=== PATIENT | male | born 1985 | race American Indian/Alaskan Native ===

== ENCOUNTER 2018-09-01 13:47 | Inpatient (IN) | payer OTHER ==
[2018-09-01] MEDS ORDERED: NACL 0.9% 1000 ML 1,000 ML IV ONE ×2 (14:28→14:46)
--- NOTE | 2018-09-01 14:29 | Emergency Department Report ---
ED Syncope HPI - General Chief Complaint: Syncope Stated Complaint: SYNCOPE Time Seen by Provider: 09/01/18 14:23 Source: patient, RN notes reviewed, other (history obtained also from patient's girlfriend) Exam Limitations: other (patient is altered, and is a poor historian.) - History of Present Illness Initial Comments: This is a 32-year-old gentleman, not known to this provider previously, who is brought to the hospital by EMS and by girlfriend for episode of syncope. The patient's girlfriend, patient was in his usual state of health, up until 12:00 PM or so. She reports that he passed out. She reports that prior to this, patient had not been having headache, neck pain, chest pain abdominal pain or shortness of breath, she does reports no recent travel history, she denies DVT, pulmonary embolus risk factors for the patient, and she reports no drug use. In the emergency room, the patient is laying on isr side, does not follow commands. He appears to have fluctuating consciousness. The patient's girlfriend has asked the patient to turn cooperate with physical exam as well as laboratory draw, the patient continues to move 4 extremities, and speaks nonsensically. He is not able to describe exacerbating or relieving factors, aggravation, or qualitative nature of his symptoms. Timing/Prior Episodes: multiple episodes today - Related Data Allergies/Adverse Reactions: Allergies No Known Allergies Allergy (Unverified 08/07/18 23:45) Home Medications: Ambulatory Orders No Known Home Medications [No Reported Home Medications] 09/01/18 ED Review of Systems ROS: Stated complaint: SYNCOPE Other details as noted in HPI Comment: Unobtainable due to pts medical conditions Cardiovascular: syncope Neurological: confusion ED Past Medical Hx - Surgical History Additional Surgical History: Intestinal obstruction - Social History Smoking Status: Current Every Day Smoker Substance Use Type: None - Medications Home Medications: Home Medications Medication Instructions Recorded Confirmed Last Taken Type No Known Home Medications [No 09/01/18 09/01/18 Unknown History Reported Home Medications] ED Physical Exam - General Limitations: Altered Mental Status General appearance: alert, appears intoxicated, in distress - Head Head exam: Present: atraumatic, normocephalic - Eye Eye exam: Present: normal appearance, PERRL. Absent: nystagmus - ENT ENT exam: Present: normal exam, normal orophraynx, mucous membranes moist, normal external ear exam - Neck Neck exam: Present: normal inspection, full ROM. Absent: tenderness, meningismus - Respiratory Respiratory exam: Present: normal lung sounds bilaterally. Absent: respiratory distress - Cardiovascular Cardiovascular Exam: Present: normal rhythm, bradycardia, normal heart sounds. Absent: systolic murmur, diastolic murmur, rubs, gallop - GI/Abdominal GI/Abdominal exam: Present: soft. Absent: distended, tenderness, guarding, rebo und, rigid, pulsatile mass - Rectal Rectal exam: Present: deferred - Extremities Exam Extremities exam: Present: normal inspection, full ROM, other (2+ pulses noted in the bilateral upper, lower extremities. Compartments soft. No long bony tenderness. The pelvis is stable.). Absent: pedal edema, joint swelling, calf tenderness - Back Exam Back exam: Present: normal inspection, full ROM. Absent: tenderness, CVA tenderness (R), paraspinal tenderness, vertebral tenderness - Neurological Exam Neurological exam: Present: altered, other (there is no facial droop. The patient is moving 4 extremities. Speaking nonsensically. Unable to perform detailed neurologic examination secondary to patient's inability to cooperate and participate with detailed neurologic examination.) - Psychiatric Psychiatric exam: Present: normal affect, normal mood - Skin Skin exam: Present: warm, dry, intact, normal color. Absent: rash ED Course Vital Signs 09/01/18 09/01/18 09/01/18 14:18 14:30 14:31 Temperature 98.1 F Pulse Rate 58 L 57 L Respiratory 18 18 Rate Blood Pressure 108/65 105/67 O2 Sat by Pulse 96 99 99 Oximetry 09/01/18 09/01/18 09/01/18 14:46 15:00 15:32 Temperature Pulse Rate 56 L 63 Respiratory 13 16 17 Rate Blood Pressure 108/65 108/65 125/94 O2 Sat by Pulse 97 Oximetry 09/01/18 09/01/18 09/01/18 15:46 16:00 16:16 Temperature Pulse Rate 61 59 L 57 L Respiratory 18 18 17 Rate Blood Pressure 106/55 110/62 125/94 O2 Sat by Pulse 98 100 Oximetry 09/01/18 09/01/18 09/01/18 16:30 16:46 17:00 Temperature Pulse Rate 55 L 48 L 42 L Respiratory 17 19 19 Rate Blood Pressure 125/94 103/54 103/54 O2 Sat by Pulse 100 100 100 Oximetry 09/01/18 09/01/18 09/01/18 17:16 17:30 17:46 Temperature Pulse Rate 45 L 51 L 52 L Respiratory 19 19 19 Rate Blood Pressure 103/54 103/54 107/54 O2 Sat by Pulse 99 99 99 Oximetry 09/01/18 18:00 Temperature Pulse Rate 53 L Respiratory 18 Rate Blood Pressure 107/54 O2 Sat by Pulse 99 Oximetry - Reevaluation(s) Reevaluation #1: 09/01/18 16:09 Differential diagnosis, including not limited to: Orthostasis, vagal event, structural cardiac disease, symptomatic bradycardia, forgot a syndrome, intracranial injury, dehydration, pulmonary embolus Assessment and plan: 32-year-old gentleman with reported history of syncope. The patient is altered at this time. This provider repeatedly asked the patient to cooperate with his physical exam, and to allow blood draws and participate in his medical care. The patient is initially laying on his side, and in spite of multiple attempts by myself to mitochondrial disorders counselor patient, he initially is not cooperating with his physical exam, and appears to not exhibit decision-making capacity. I explained to the patient that we needed to rule out dangerous life-threatening causes of loss of consciousness, and he was not able to articulate this in his own words. Uncertain if patient is acutely delirious, psychotic, experiencing conversion disorder, or both. Therefore, for patient safety, given documented history of hypotension, bradycardia, syncope, patient is placed on a 1013 to facilitate diagnostic workup to exclude life-threatening causes of syncope. objective laboratory testing is unremarkable, noncontrast CT scan of the brain is negative, d-dimer negative, as per girlfriend, no pulmonary embolus or DVT risk factors, perc negative As per verbal report from paramedics, Leeroy Gomes, patient had orthostatic hypotens ion. 09/01/18 16:12 Reevaluation #2: 09/01/18 18:50 Objective laboratory testing and imaging studies unremarkable, vital signs have remained stable. Given history of syncope, orthostasis, abnormal intervals, and appropriate mental status, patient will be admitted to the medical service for further evaluation and management. Dr. Granda, of the medical service, will admi t the patient ED Medical Decision Making - Lab Data Result diagrams: 09/01/18 14:33 09/01/18 14:33 Vital Signs 09/01/18 09/01/18 09/01/18 14:18 14:30 14:31 Temperature 98.1 F Pulse Rate 58 L 57 L Respiratory 18 18 Rate Blood Pressure 108/65 105/67 O2 Sat by Pulse 96 99 99 Oximetry 09/01/18 09/01/18 09/01/18 14:46 15:00 15:32 Temperature Pulse Rate 56 L 63 Respiratory 13 16 17 Rate Blood Pressure 108/65 108/65 125/94 O2 Sat by Pulse 97 Oximetry 09/01/18 15:46 Temperature Pulse Rate 61 Respiratory 18 Rate Blood Pressure 106/55 O2 Sat by Pulse 98 Oximetry Lab Results 09/01/18 09/01/18 09/01/18 Range/Units 14:33 14:33 14:33 WBC 4.7 (4.5-11.0) K/mm3 RBC 5.08 H (3.65-5.03) M/mm3 Hgb 14.1 (11.8-15.2) gm/dl Hct 43.7 (35.5-45.6) % MCV 86 (84-94) fl MCH 28 (28-32) pg MCHC 32 (32-34) % RDW 13.1 L (13.2-15.2) % Plt Count 201 (140-440) K/mm3 PT 14.5 (12.2-14.9) Sec. INR 1.09 (0.87-1.13) APTT 29.8 (24.2-36.6) Sec. D-Dimer (0-234) ng/mlDDU Sodium 138 (137-145) mmol/L Potassium 3.9 (3.6-5.0) mmol/L Chloride 105.0 (98-107) mmol/L Carbon Dioxide 24 (22-30) mmol/L Anion Gap 13 mmol/L BUN 10 (9-20) mg/dL Creatinine 0.8 (0.8-1.5) mg/dL Estimated GFR > 60 ml/min BUN/Creatinine Ratio 13 % Glucose 83 (75-100) mg/dL Calcium 8.4 (8.4-10.2) mg/dL Magnesium 2.00 (1.7-2.3) mg/dL Total Bilirubin 0.60 (0.1-1.2) mg/dL AST 18 (5-40) units/L ALT 11 (7-56) units/L Alkaline Phosphatase 78 (35-129) units/L Total Creatine Kinase 210 H (55-170) units/L Troponin T < 0.010 (0.00-0.029) ng/mL Total Protein 6.9 (6.3-8.2) g/dL Albumin 4.0 (3.9-5) g/dL Albumin/Globulin Ratio 1.4 % TSH (0.270-4.200) mlU/mL Salicylates (2.8-20.0) mg/dL Plasma/Serum Alcohol (0-0.07) % 09/01/18 09/01/18 09/01/18 Range/Units 14:33 14:33 14:33 WBC (4.5-11.0) K/mm3 RBC (3.65-5.03) M/mm3 Hgb (11.8-15.2) gm/dl Hct (35.5-45.6) % MCV (84-94) fl MCH (28-32) pg MCHC (32-34) % RDW (13.2-15.2) % Plt Count (140-440) K/mm3 PT (12.2-14.9) Sec. INR (0.87-1.13) APTT (24.2-36.6) Sec. D-Dimer (0-234) ng/mlDDU Sodium (137-145) mmol/L Potassium (3.6-5.0) mmol/L Chloride (98-107) mmol/L Carbon Dioxide (22-30) mmol/L Anion Gap mmol/L BUN (9-20) mg/dL Creatinine (0.8-1.5) mg/dL Estimated GFR ml/min BUN/Creatinine Ratio % Glucose (75-100) mg/dL Calcium (8.4-10.2) mg/dL Magnesium (1.7-2.3) mg/dL Total Bilirubin (0.1-1.2) mg/dL AST (5-40) units/L ALT (7-56) units/L Alkaline Phosphatase (35-129) units/L Total Creatine Kinase (55-170) units/L Troponin T (0.00-0.029) ng/mL Total Protein (6.3-8.2) g/dL Albumin (3.9-5) g/dL Albumin/Globulin Ratio % TSH 0.668 (0.270-4.200) mlU/mL Salicylates < 0.3 L (2.8-20.0) mg/dL Plasma/Serum Alcohol < 0.01 (0-0.07) % 09/01/18 Range/Units 14:33 WBC (4.5-11.0) K/mm3 RBC (3.65-5.03) M/mm3 Hgb (11.8-15.2) gm/dl Hct (35.5-45.6) % MCV (84-94) fl MCH (28-32) pg MCHC (32-34) % RDW (13.2-15.2) % Plt Count (140-440) K/mm3 PT (12.2-14.9) Sec. INR (0.87-1.13) APTT (24.2-36.6) Sec. D-Dimer 38.85 (0-234) ng/mlDDU Sodium (137-145) mmol/L Potassium (3.6-5.0) mmol/L Chloride (98-107) mmol/L Carbon Dioxide (22-30) mmol/L Anion Gap mmol/L BUN (9-20) mg/dL Creatinine (0.8-1.5) mg/dL Estimated GFR ml/min BUN/Creatinine Ratio % Glucose (75-100) mg/dL Calcium (8.4-10.2) mg/dL Magnesium (1.7-2.3) mg/dL Total Bilirubin (0.1-1.2) mg/dL AST (5-40) units/L ALT (7-56) units/L Alkaline Phosphatase (35-129) units/L Total Creatine Kinase (55-170) units/L Troponin T (0.00-0.029) ng/mL Total Protein (6.3-8.2) g/dL Albumin (3.9-5) g/dL Albumin/Globulin Ratio % TSH (0.270-4.200) mlU/mL Salicylates (2.8-20.0) mg/dL Plasma/Serum Alcohol (0-0.07) % - EKG Data -: EKG Interpreted by Ar EKG shows normal: sinus rhythm Rate: normal - EKG Data 09/01/18 16:11 EKG #1 demonstrates bradycardia, 46 beats minute, normal axis, IN interval prolonged, not consistent with ST elevation myocardial infarction. EKG number 2 appear to be unchanged. - Radiology Data Radiology results: report reviewed, image reviewed Noncontrast CT scan of the brain is negative. X-ray the chest is negative. Noncontrast CT scan of the abdomen and pelvis is negative for acute disease. Critical care attestation.: If time is entered above; I have spent that time in minutes in the direct care of this critically ill patient, excluding procedure time. ED Disposition Clinical Impression: Syncope, Bradycardia Disposition: 09 OP ADMIT IP TO THIS HOSP Is pt being admited?: Yes Does the pt Need Aspirin: Yes Condition: Good Instructions: Syncope (ED) Referrals: PRIMARY CARE, [Primary Care Provider] - 3-5 Days
[2018-09-01] MEDS ORDERED: ATIVAN ONE (14:42)
[2018-09-01] MEDS ORDERED: HALDOL ONE (14:42)
[2018-09-01] MEDS ORDERED: ATIVAN IM PRN (14:46)
[2018-09-01] MEDS ORDERED: HALDOL IM PRN (14:46)
[2018-09-01 15:00] LABS: Hematocrit 43.7 % (35.5-45.6); Hemoglobin 14.1 gm/dl (11.8-15.2); Mean Corpuscular HGB Conc 32 % (32-34); Mean Corpuscular Volume 86 fl (84-94); Platelet Count 201 K/mm3 (140-440); Red Blood Count 5.08 M/mm3 (3.65-5.03); Red Cell Distribution Width 13.1 % (13.2-15.2)
[2018-09-01 15:11] LABS: INR 1.09 (0.87-1.13)
[2018-09-01 15:12] LABS: Partial Thromboplastin Time 29.8 Sec. (24.2-36.6)
--- NOTE | 2018-09-01 15:30 | Cat Scan Report ---
FINAL REPORT EXAM: CT HEAD/BRAIN WO CON HISTORY: ams syncope, PT IMMOBILIZED, UNRESPONSIVE. SYNCOPAL EPISODES SINCE YESTERDAY. TECHNIQUE: CT of the head was performed without intravenous contrast. PRIORS: None. FINDINGS: The ventricles are normal in shape and position. The ventricles are nondilated. No intracranial hemo rrhage, mass, mass effect, midline shift or evidence of acute ischemic infarct. The basilar cisterns are patent. The paranasal sinuses are clear. The extracranial soft tissues demonstrate no abnormality. The calvar ium is intact. The orbits are intact. The mastoid air cells are clear. IMPRESSION: No acute intracranial abnormality.
[2018-09-01 15:42] LABS: Alanine Aminotransferase 11 units/L (7-56); BUN/Creatinine Ratio 13; Blood Urea Nitrogen 10 mg/dL (9-20); Calcium 8.4 mg/dL (8.4-10.2); Hemolysis Index 15
--- NOTE | 2018-09-01 15:57 | Cat Scan Report ---
FINAL REPORT EXAM: CT ABDOMEN PELVIS WO CON HISTORY: syncope hypotension? aaa vs rph. BEST STUDY POSSIBLE. PT UNRESPONSIVE, MOVING, HAD TO STRAP HIM DOWN, UNABLE TO HOLD BREATH OR PUT ARMS ABOVE HEAD. TECHNIQUE: CT of the abdomen and pelvis was performed without intravenous contrast. Reconstructions were included in the coronal and sagittal planes. PRIORS: None. FINDINGS: Lower thorax: Mild bibasilar atelectasis seen. The visualized portions of the heart are normal. Liver: The liver is normal in attenuation. No intrahepatic biliary duct dilation. No focal hepatic le sions. Gallbladder/ biliary system: No cholelithiasis. The common bile duct appears nondilated. Spleen: No splenic lesions are seen. Pancreas: No pancreatic lesions are seen. No pancreatic duct dilation. Kidneys: No renal masses, cysts or hydronephrosis. No renal or ureteral calcifications. Adrenal glands: No adrenal masses. Vasculature: The abdominal aorta is nondilated. Lymph nodes: No enlarged lymph nodes are seen in the abdomen or pelvis. Bowel, mesentery, peritoneum: No bowel obstruction. No free fluid or free air. The appendix was not d efinitively seen. No evidence of retroperitoneal hemorrhage. No colonic diverticulosis. No bowel wall thickening. Urinary bladder: No filling defects are seen. Pelvis: Normal anatomy is noted. No masses. Abdominal wall: No abdominal wall hernia or other subcutaneous findings. Bones: No acute or chronic osseous finding. IMPRESSION: No acute intra-abdominal or intra-pelvic process.
--- NOTE | 2018-09-01 15:59 | XRay Report ---
FINAL REPORT EXAM: XR CHEST 1V AP HISTORY: syncope TECHNIQUE: Frontal chest radiograph. PRIORS: None. FINDINGS: The cardiomediastinal silhouette is normal. No focal consolidation. No pleural effusion. No pneumothorax. No acute osseous abnormality. IMPRESSION: No acute cardiopulmonary process.
[2018-09-01] MEDS ORDERED: SODIUM CHLORIDE FLUSH SYRINGE 10 ML IV PRN (18:43)
[2018-09-01] MEDS ORDERED: ZOFRAN IV PRN (18:43)
[2018-09-01] MEDS ORDERED: TYLENOL PO PRN (18:43)
[2018-09-01] MEDS ORDERED: PROVENTIL IH PRN (18:43)
--- NOTE | 2018-09-01 18:43 | History and Physical Report ---
History of Present Illness Chief complaint: He passed out History of present illness: 32 YO Male with Nicotine Dependence presents to ED for evaluation. Pt is lethargic/stuporous and unable to provide detailed history. Pt history provided by his girlfriend, who is at bedside during exam and interview. As per girlfrien d, the patient was in his usual state of health, but around 1200hrs the patient suddenly lost consciousness. No further history obtainable. EMS notified, and upon arrival the patient was found to be lethargic. Pt transported to [facility] for further care and evaluation. Pt seen and evaluated in ED and found to have Encephalopathy and well as bradycardia on EKG. Pt admitted to telemetry. Past History Past Medical History: No medical history (reviewed) Past Surgical History: bowel surgery Social history: single, smoking. denies: alcohol abuse, prescription drug abuse Family history: no significant family history (reviewed) Medications and Allergies Allergies Allergy/AdvReac Type Severity Reaction Status Date / Time No Known Allergies Allergy Unverified 08/07/18 23:45 Home Medications Medication Instructions Recorded Confirmed Last Taken Type No Known Home Medications [No 09/01/18 09/01/18 Unknown History Reported Home Medications] Active Meds: Active Medications Haloperidol Lactate (Haldol) 5 mg IM Q6HR PRN PRN Reason: Agitation Last Admin: 09/01/18 14:44 Dose: 5 mg Documented by: Lorazepam (Ativan) 2 mg IM Q4HR PRN PRN Reason: Agitation Last Admin: 09/01/18 14:44 Dose: 2 mg Documented by: Review of Systems ROS unobtainable: due to mental status Exam - Constitutional Vitals: Temp Pulse Resp BP Pulse Ox 98.1 F 53 L 18 107/54 99 09/01/18 14:31 09/01/18 18:00 09/01/18 18:00 09/01/18 18:00 09/01/18 18:00 General appearance: Present: mild distress - EENT Eyes: Present: miosis - Neck Neck: Present: supple, normal ROM - Respiratory Respiratory effort: normal Respiratory: bilateral: CTA - Cardiovascular Heart Sounds: Present: S1 & S2. Absent: rub, click - Extremities Extremities: pulses symmetrical, No edema Peripheral Pulses: within normal limits - Abdominal General gastrointestinal: Present: soft, non-tender, non-distended, normal bowel sounds Male genitourinary: Present: normal - Integumentary Integumentary: Present: clear, warm, dry - Musculoskeletal Musculoskeletal: generalized weakness - Psychiatric Psychiatric: no appropriate mood/affect, no intact judgment & insight, no memory intact - Neurologic Neurologic: CNII-XII intact, moves all extremities, no gait normal Results - Labs CBC & Chem 7: 09/01/18 14:33 09/01/18 14:33 Labs: Abnormal lab results 09/01/18 09/01/18 09/01/18 Range/Units 14:33 14:33 14:33 RBC 5.08 H (3.65-5.03) M/mm3 RDW 13.1 L (13.2-15.2) % Total Creatine Kinase 210 H (55-170) units/L Salicylates < 0.3 L (2.8-20.0) mg/dL Acetaminophen (10.0-30.0) ug/mL 09/01/18 Range/Units 14:33 RBC (3.65-5.03) M/mm3 RDW (13.2-15.2) % Total Creatine Kinase (55-170) units/L Salicylates (2.8-20.0) mg/dL Acetaminophen < 5.0 L (10.0-30.0) ug/mL Assessment and Plan - Patient Problems (1) Encephalopathy Current Visit: Yes Status: Acute Plan to address problem: CT Head, neuro check, seizure precautions, UDS, EEG. (2) Nicotine dependence unspecified, with withdrawal Current Visit: Yes Status: Acute Qualifiers: Nicotine product type: cigarettes Qualified Code(s): F17.213 - Nicotine dependence, cigarettes, with withdrawal Plan to address problem: smoking cessation counseling, supportive care. (3) Bradycardia Current Visit: Yes Status: Acute Plan to address problem: Admit to telemetry, echo, to evaluate for HOCM, D dimer, (4) DVT prophylaxis Current Visit: Yes Status: Acute Plan to address problem: SCD to BLE while in bed
[2018-09-01] MEDS: SODIUM CHLORIDE FLUSH SYRINGE 10 ML IV SCH (21:58)
[2018-09-02 04:41] VITALS: BP 113/65
[2018-09-02 08:41] LABS: Bilirubin,Urine NEG (Negative); Blood,Urine NEG (Negative); Color,Urine Yellow (Yellow); Protein,Urine <15 mg/dL mg/dL (Negative); Urobilinogen,Urine < 2.0 mg/dL (<2.0)
[2018-09-02 08:51] LABS: Amphetamine Screen,Urine PRESUMPTIVE NEGATIVE; Cocaine Screen,Urine PRESUMPTIVE NEGATIVE; Methadone Screen,Urine PRESUMPTIVE NEGATIVE; Opiate Screen,Urine PRESUMPTIVE NEGATIVE
[2018-09-02 09:04] LABS: Benzodiazepines Screen,Urine PRESUMPTIVE POSITIVE; Cannabinoid Screen,Urine PRESUMPTIVE POSITIVE
[2018-09-02] MEDS: SODIUM CHLORIDE FLUSH SYRINGE 10 ML IV SCH (09:05)
--- NOTE | 2018-09-02 11:44 | Discharge Summary ---
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 Pt is lethargic/stuporous and unable to provide detailed history. Pt history provided by his girlfriend, who is at bedside during exam and interview. As per girlfriend, the patient was in his usual state of health, but around 1200hrs the patient suddenly lost consciousness. No further history obtainable. EMS notified, and upon arrival the patient was found to be lethargic. Pt transported to [facility] for further care and evaluation. Pt seen and evaluated in ED and found to have Encephalopathy and well as bradycardia on EKG. Pt admitted to telemetry. Patient was placed on 1013. Patient was also seen by psych and the 1013 Rescinded. He is now awake and denies any chest pain, nausea, vomiting diarrhea. He is stable for discharge. (1) Metabolic Encephalopathy (2) Nicotine dependence unspecified, with withdrawal (3) Bradycardia Disposition: DC-01 TO HOME OR SELFCARE Time spent for discharge: 35 mins Core Measure Documentation - Palliative Care Palliative Care/ Comfort Measures: Not Applicable - Core Measures Any of the following diagnoses?: none Exam - Constitutional Vitals: Temp Pulse Resp BP Pulse Ox 98.0 F 40 L 18 113/65 100 09/02/18 04:38 09/02/18 04:38 09/02/18 04:38 09/02/18 04:38 09/02/18 04:38 General appearance: Present: no acute distress, well-nourished - EENT Eyes: Present: PERRL, EOM intact - Neck Neck: Present: supple, normal ROM - Respiratory Respiratory: bilateral: CTA - Cardiovascular Rhythm: regular Heart Sounds: Present: S1 & S2. Absent: systolic murmur, diastolic murmur - Extremities Extremities: no ischemia, pulses intact, pulses symmetrical, No edema, normal temperature, normal color, Full ROM Peripheral Pulses: within normal limits - Abdominal General gastrointestinal: Present: soft, non-tender, non-distended, normal bowel sounds - Rectal Rectal Exam: deferred - Integumentary Integumentary: Present: clear, warm, dry - Musculoskeletal Musculoskeletal: strength equal bilaterally, right sided weakness, left sided weakness - Psychiatric Psychiatric: appropriate mood/affect, intact judgment & insight, cooperative - Neurologic Neurologic: CNII-XII intact, moves all extremities - Allied Health Allied health notes reviewed: nursing, social work Plan Activity: advance as tolerated, fall precautions Diet: regular Special Instructions: record daily BP diary, smoking cessation Follow up with: PRIMARY CARE, [Primary Care Provider] - 3-5 Days
[2018-09-02] MEDS ORDERED: AFLURIA QUAD 2018-2019 SYRINGE IM ONE (12:00)
[2018-09-02] MEDS ORDERED: PNEUMOVAX 23 IM ONE (12:00)
--- NOTE | 2018-09-02 14:34 | Consultation ---
History of Present Illness - Reason for Consult Consult date: 09/02/18 Reason for consult: Mental Health Evaluation Requesting physician: DESIRE VALDIVIA - Chief Complaint Chief complaint: "I made a mistake" - History of Present Psychiatric Illness 32-year-old AA male who presented to the Er for a syncope episode. Psychiatry was consulted to see the patient for possible overdose. Today the patient is calm and cooperative during the assessment. He stated that he smoked marijuana the day of the episode. Also, he stated that he took a Xanax that he bought off the street to "chill out." He denies trying to kill himself. Per collateral information from the patient's father Ricky Saenz at [phone], he stated that his son didn't try to kill himself. He denies any previous situations like this in the past. The patient denies any previous suicide attempts. He denies being dx with any mood do's. He stated, "I like to smoke marijuana, period." He denies SI/Hi's and AVH's. He denies erratic sleep and a poor appetite. He denies alcohol consumption (etoh). Medications and Allergies Allergies Allergy/AdvReac Type Severity Reaction Status Date / Time No Known Allergies Allergy Unverified 08/07/18 23:45 Home Medications Medication Instructions Recorded Confirmed Last Taken Type No Known Home Medications [No 09/01/18 09/01/18 Unknown History Reported Home Medications] Past psychiatric history - Past Medical History Past Medical History: No medical history Past Surgical History: No surgical history - past Psychiatric treatment and history psychiatric treatment history: Hx of marijuana use. Denies a fam psy hx. - Social History Social history: lives with family Mental Status Exam - Vital signs Last Vital Signs Temp 98.0 F 09/02/18 04:38 Pulse 40 L 09/02/18 04:38 Resp 18 09/02/18 04:38 BP 113/65 09/02/18 04:38 Pulse Ox 100 09/02/18 04:38 - Exam Narrative exam: MSE: Appearance: calm, cooperative Behavior: regular eye contact Speech: regular rate and tone Mood: "okay" Affect: congruent to mood Thought Process: linear Thought Content: denies SI/HI's and AVH's Motor Activity: sitting up in bed Cognition: A/O x3 Insight: appropriate Judgment: appropriate Results Result Diagrams: 09/01/18 14:33 09/01/18 14:33 Abnormal lab results 09/01/18 09/01/18 09/01/18 Range/Units 14:33 14:33 14:33 RBC 5.08 H (3.65-5.03) M/mm3 RDW 13.1 L (13.2-15.2) % Total Creatine Kinase 210 H (55-170) units/L Salicylates < 0.3 L (2.8-20.0) mg/dL Acetaminophen (10.0-30.0) ug/mL 09/01/18 Range/Units 14:33 RBC (3.65-5.03) M/mm3 RDW (13.2-15.2) % Total Creatine Kinase (55-170) units/L Salicylates (2.8-20.0) mg/dL Acetaminophen < 5.0 L (10.0-30.0) ug/mL All other labs normal. Assessment and Plan Assessment and plan: Impression: Unintentional overdose. Cannabis Use DO. Today the patient is calm and cooperative during the assessment. The patient is no threat to self. Recommendation/Plan: Rescind 1013. Discussed the importance to abstain form recreational drug use. Also, discussed the importance to only take prescribed medication. Staffed with Dr Kim.
== END 2018-09-02 13:08 | disposition home or self-care (01) | DRG 917 ==
LOC: ED 13:47 → 4A 18:43
PROVIDERS: ADMIT Internal Medicine; ATTEND Internal Medicine
PROC: 3E0234Z Introduction of Serum, Toxoid and Vaccine into Muscle, Percutaneous Approach (ICD-10-PCS; principal; 2018-09-02)
DX: T40.7X1A Poisoning by cannabis (derivatives), accidental (unintentional), initial encounter (principal); G93.41 Metabolic encephalopathy; F17.203 Nicotine dependence unspecified, with withdrawal; R00.1 Bradycardia, unspecified; Y92.89 Other specified places as the place of occurrence of the external cause; Z23 Encounter for immunization
CPT/HCPCS: 36415; 70450; 71045; 74176; 80053; 80307; 80320; 81001; 82550; 83735; 83880; 84443; 84484; 85027; 85379; 85610; 85730; 90686; 90732; 93005; 93010; 96361; 96372; 96374; 99406; G0378; G0480; J1630; J2060; J7030

== ENCOUNTER 2019-01-14 04:59 | Inpatient (IN) | payer OTHER ==
[2019-01-14] MEDS ORDERED: NACL 0.9% 1000 ML 1,000 ML ONE (05:15)
[2019-01-14] MEDS ORDERED: NACL 0.9% 1000 ML 1,000 ML IV ONE (05:19)
--- NOTE | 2019-01-14 05:19 | Emergency Department Report ---
ED Chest Pain HPI - General Stated Complaint: CP Time Seen by Provider: 01/14/19 05:14 - History of Present Illness Initial Comments: Patient is a 33 years old male with no significant past medical history. Patient brought to the emergency room via EMS complaining of left-sided chest pain, pressure in nature, radiated to the left arm. Patient stated that he took ecstasy yesterday. EKG reviewed and show inferior lateral STEMI. STEMI code initiated. Cardiac laborer carpentry dock activated. I discussed the patient with Dr. Narayanan who stated that he is coming to see the patient. Patient received 324 mg of aspirin by EMS. MD Complaint: chest pain -: This morning Onset: during rest Pain Location: left chest Quality: pressure Treatments Prior to Arrival: aspirin, oxygen - Related Data Home Medications Medication Instructions Recorded Confirmed Last Taken No Known Home Medications [No 09/01/18 09/01/18 Unknown Reported Home Medications] Allergies Allergy/AdvReac Type Severity Reaction Status Date / Time No Known Allergies Allergy Unverified 08/07/18 23:45 Heart Score - HEART Score History: Highly suspicious EKG: Significant ST-depression Age: < 45 Risk factors: 1-2 risk factors Troponin: < normal limit HEART Score: 5 - Critical Actions Critical Actions: 4-6 pts:12-16.6% risk of adverse cardiac event. Should be admitted ED Review of Systems ROS: Stated complaint: CP Other details as noted in HPI Comment: All other systems reviewed and negative Constitutional: denies: chills, fever Respiratory: denies: cough, orthopnea, shortness of breath, SOB with exertion, SOB at rest Cardiovascular: chest pain. denies: palpitations Gastrointestinal: denies: abdominal pain, nausea Neurological: denies: headache, weakness, numbness, paresthesias, confusion, abnormal gait ED Past Medical Hx - Surgical History Additional Surgical History: Intestinal obstruction - Social History Smoking Status: Current Every Day Smoker - Medications Home Medications: Home Medications Medication Instructions Recorded Confirmed Last Taken Type No Known Home Medications [No 09/01/18 09/01/18 Unknown History Reported Home Medications] ED Physical Exam - General General appearance: alert, in no apparent distress, anxious - Head Head exam: Present: atraumatic, normocephalic, normal inspection - Eye Eye exam: Present: normal appearance - ENT ENT exam: Present: normal exam, normal orophraynx, mucous membranes moist - Neck Neck exam: Present: normal inspection, full ROM. Absent: tenderness, meningismus, lymphadenopathy, thyromegaly - Respiratory Respiratory exam: Present: normal lung sounds bilaterally - Cardiovascular Cardiovascular Exam: Present: regular rate, normal rhythm, normal heart sounds - GI/Abdominal GI/Abdominal exam: Present: soft, normal bowel sounds. Absent: distended, tenderness, guarding, rebound, rigid - Extremities Exam Extremities exam: Present: normal inspection, full ROM - Neurological Exam Neurological exam: Present: alert, oriented X3, CN II-XII intact - Skin Skin exam: Present: warm, intact ED Medical Decision Making - EKG Data -: EKG Interpreted by Me EKG shows normal: sinus rhythm Rate: normal - EKG Data 01/14/19 05:21 Inferior of STEMI. - Medical Decision Making Patient is a 33 years old male with no significant past medical history. Patient brought to the emergency room via EMS complaining of left-sided chest pain, pressure in nature, radiated to the left arm. Patient stated that he took ecstasy yesterday. EKG reviewed and show inferior lateral STEMI. STEMI code initiated. Cardiac laborer carpentry dock activated. I discussed the patient with Dr. Narayanan who stated that he is coming to see the patient. Patient received 324 mg of aspirin by EMS. Critical Care Time: Yes Critical care time in (mins) excluding proc time.: 30 Critical care attestation.: If time is entered above; I have spent that time in minutes in the direct care of this critically ill patient, excluding procedure time. ED Disposition Clinical Impression: STEMI (ST elevation myocardial infarction) Disposition: -09 OP ADMIT IP TO THIS HOSP Is pt being admited?: Yes Condition: Stable Referrals: PRIMARY CARE, [Primary Care Provider] - 3-5 Days
[2019-01-14 05:27] LABS: Basophils # (Auto) 0.1 K/mm3 (0.0-0.1); Basophils % (Auto) 0.7 % (0.0-1.8); Eosinophils # (Auto) 0.1 K/mm3 (0.0-0.4); Eosinophils % (Auto) 0.7 % (0.0-4.3); Hematocrit 41.1 % (35.5-45.6); Hemoglobin 13.7 gm/dl (11.8-15.2); Lymphocytes # (Auto) 2.6 K/mm3 (1.2-5.4); Lymphocytes % (Auto) 21.1 % (13.4-35.0); Mean Corpuscular HGB Conc 33 % (32-34); Mean Corpuscular Volume 84 fl (84-94); Monocytes # (Auto) 1.6 K/mm3 (0.0-0.8); Monocytes % (Auto) 13.4 % (0.0-7.3); Platelet Count 299 K/mm3 (140-440); Red Blood Count 4.92 M/mm3 (3.65-5.03); Red Cell Distribution Width 13.7 % (13.2-15.2)
--- NOTE | 2019-01-14 05:31 | XRay Report ---
PROCEDURE: XR CHEST 1V AP TECHNIQUE: Chest radiograph single view. HISTORY: Chest Pain COMPARISONS: 09/01/2018 . FINDINGS: Heart: Normal. Mediastinum/Vessels: Normal. Lungs/Pleural space: Normal. Bony thorax: No acute osseous abnormality. Life support devices: None. IMPRESSION: No acute cardiopulmonary abnormality. This document is electronically signed by Alexey Lawler MD., Jan 14 2019 05:29:17 AM ET
[2019-01-14] MEDS ORDERED: MORPHINE ONE (05:36)
[2019-01-14] MEDS ORDERED: ZOFRAN ONE (05:36)
[2019-01-14] MEDS ORDERED: MORPHINE IV ONE (05:38)
[2019-01-14] MEDS ORDERED: ZOFRAN IV ONE (05:38)
[2019-01-14 05:41] LABS: BUN/Creatinine Ratio 7; Blood Urea Nitrogen 5 mg/dL (9-20); Calcium 9.1 mg/dL (8.4-10.2); Hemolysis Index 58
[2019-01-14 05:45] LABS: INR 0.96 (0.87-1.13)
[2019-01-14 05:46] LABS: Partial Thromboplastin Time 32.1 Sec. (24.2-36.6)
[2019-01-14] MEDS ORDERED: HEPARIN 10,000 UNITS/10 ML ONE (05:53)
[2019-01-14] MEDS ORDERED: HEPARIN/NS 5000 UNIT/500ML(CATH LAB) 1,000 ML IR ONE (05:53)
[2019-01-14] MEDS ORDERED: CALAN ONE (05:53)
[2019-01-14] MEDS ORDERED: NITROGLYCERIN SYRINGE 3 ML ONE (05:53)
[2019-01-14] MEDS ORDERED: XYLOCAINE 2% INFILTRATI ONE (05:53)
[2019-01-14] MEDS ORDERED: VERSED ONE (05:54)
[2019-01-14] MEDS ORDERED: SUBLIMAZE ONE (05:54)
[2019-01-14] MEDS ORDERED: TORADOL ONE (06:25)
[2019-01-14 06:29] LABS: Chol/HDL Ratio 2.76 %; HDL Cholesterol 59 mg/dL (40-59); LDL Cholesterol,Direct 89 mg/dL (50-130)
--- NOTE | 2019-01-14 06:34 | Consultation ---
History of Present Illness Consult date: 01/14/19 Requesting physician: WILL BARLOW Consult reason: chest pain, elevated troponin History of present illness: 33-year-old male history of smoker took ecstasy yesterday denies any cocaine been having on and off chest pain left-sided his legs inside sometimes worsened with inspiration woke up this morning with excruciating chest pain and called EMS EKG showed ST elevation with mild depression in V1 and V2 acute MN protocol was initiated for EKG changes with severe chest pain. Cardiac catheterization revealed normal coronaries with normal LV function. [place] to be myeo pericarditis as patient's positive troponin. Patient denies any syncope fever or chills palpitations Past History Past Medical History: No medical history Past Surgical History: No surgical history Social history: smoking, other (ecstasy) Family history: no significant family history Medications and Allergies Allergies Allergy/AdvReac Type Severity Reaction Status Date / Time No Known Allergies Allergy Unverified 08/07/18 23:45 Home Medications Medication Instructions Recorded Confirmed Last Taken Type No Known Home Medications [No 09/01/18 09/01/18 Unknown History Reported Home Medications] Review of Systems All systems: negative (as per HPI) Physical Examination Vital Signs Temp Pulse Resp BP Pulse Ox 98.3 F 66 16 155/101 100 01/14/19 05:24 01/14/19 05:24 01/14/19 05:24 01/14/19 05:24 01/14/19 05:24 General appearance: no acute distress HEENT: Positive: PERRL, Mucus Membranes Moist Neck: Positive: neck supple, trachea midline Cardiac: Positive: Reg Rate and Rhythm, S1/S2. Negative: Audible Murmur Lungs: Positive: clear to auscultation, Normal Breath Sounds Neuro: Positive: Grossly Intact Abdomen: Positive: Soft, Active Bowel Sounds. Negative: Tender, Distended Male genitourinary: Positive: normal Skin: Positive: Clear Incision: Cardiac Cath Site Musculoskeletal: No Pain, Normal Range of Motion Extremities: Present: normal. Absent: edema Results 01/14/19 05:18 01/14/19 05:18 Coagulation 01/14/19 Range/Units 05:18 PT 13.4 (12.2-14.9) Sec. INR 0.96 (0.87-1.13) APTT 32.1 (24.2-36.6) Sec. Lipids 01/14/19 Range/Units 05:18 Triglycerides 101 (2-149) mg/dL Cholesterol 163 (50-199) mg/dL HDL Cholesterol 59 (40-59) mg/dL Cholesterol/HDL Ratio 2.76 % CBC 01/14/19 Range/Units 05:18 WBC 12.1 H (4.5-11.0) K/mm3 RBC 4.92 (3.65-5.03) M/mm3 Hgb 13.7 (11.8-15.2) gm/dl Hct 41.1 (35.5-45.6) % Plt Count 299 (140-440) K/mm3 Lymph # 2.6 (1.2-5.4) K/mm3 [place] # 1.6 H (0.0-0.8) K/mm3 Eos # 0.1 (0.0-0.4) K/mm3 Baso # 0.1 (0.0-0.1) K/mm3 Comprehensive Metabolic Panel 01/14/19 Range/Units 05:18 Sodium 135 L (137-145) mmol/L Potassium 3.9 (3.6-5.0) mmol/L Chloride 95.6 L (98-107) mmol/L Carbon Dioxide 22 (22-30) mmol/L BUN 5 L (9-20) mg/dL Creatinine 0.7 L (0.8-1.5) mg/dL Glucose 111 H (75-100) mg/dL Calcium 9.1 (8.4-10.2) mg/dL - Imaging and Cardiology Cardiac cath: report reviewed (normal coronaries right dominant system normal LV function) EKG interpretations - Telemetry EKG Rhythm: Sinus Rhythm (normal sinus rhythm diffuse ST elevation with mild depression in V1 and V2) Assessment and Plan Treat patient with anti-inflammatories Motrin 800 mg 3 times a day along with colchicine 0.6 mg once a day suggests an echocardiogram for pericardial effusion. Continue pain management - Patient Problems (1) Pericarditis Current Visit: Yes Status: Acute Qualifiers: Pericarditis type: unspecified type Chronicity: acute Qualified Code(s): I30.9 - Acute pericarditis, unspecified (2) NSTEMI (non-ST elevated myocardial infarction) Current Visit: Yes Status: Acute Plan to address problem: type 2 (3) Nicotine dependence unspecified, with withdrawal Current Visit: No Status: Chronic Qualifiers:
[2019-01-14] MEDS ORDERED: TYLENOL PO PRN (06:39)
[2019-01-14] MEDS ORDERED: SODIUM CHLORIDE FLUSH SYRINGE 10 ML IV PRN (06:39)
[2019-01-14] MEDS ORDERED: ZOFRAN IV PRN (06:39)
--- NOTE | 2019-01-14 06:49 | History and Physical Report ---
History of Present Illness Date of examination: 01/14/19 History of present illness: 33-year-old male with no medical EMERGENCY room because he was experiencing chest pain that started last night. Pain is in the left chest which she described as a tightness which was intermittent initially and then became constant, intensity 7/10, no radiation, cannot identify exacerbating relieving factors. Admits to nausea vomiting. Shortness of breath, diaphoresis, palpitation. State that he did estacy yesterday. Patient arrived as a code STEMI, he was taken emergently to the cardiac catheterization technologist, his cath was negative Review of systems Constitutional: no weight loss, chills, fever Ears, eyes, nose, mouth and throat: no nasal congestion, no nasal discharge, no sinus pressure, no vision change, no red eye. Neck: No neck pain or rigidity. Cardiovascular: no palpitation Respiratory: no cough, shortness of breath Gastrointestinal: no hematochezia, abdominal pain Genitourinary : no frequency , no hematuria Musculoskeletal: no joint swelling or muscle ache Integumentary: no rash, no pruritis Neurological: no parathesias, no focal weakness Endocrine: no cold or heat intolerance, no polyuria or polydipsia Hematologic/Lymphatic: no easy bruising, no easy bleeding, no gland swelling Allergic/Immunologic: no urticaria, no angioedema. PAST MEDICAL HISTORY: None PAST SURGICAL HISTORY: None SOCIAL HISTORY: Drinks 12 beers a day, smokes cigars, ecstasy use FAMILY HISTORY: Hypertension Past History Past Medical History: No medical history Past Surgical History: No surgical history Social history: smoking, other (ecstasy) Family history: no significant family history Medications and Allergies Allergies Allergy/AdvReac Type Severity Reaction Status Date / Time No Known Allergies Allergy Unverified 08/07/18 23:45 Home Medications Medication Instructions Recorded Confirmed Last Taken Type No Known Home Medications [No 09/01/18 09/01/18 Unknown History Reported Home Medications] Active Meds: Active Medications Acetaminophen (Tylenol) 650 mg PO Q4H PRN PRN Reason: Pain MILD(1-3)/Fever >100.5/BUSH Colchicine (Colchicine) 0.6 mg PO DAILY CHATO Enoxaparin Sodium (Lovenox) 30 mg SUB-Q QDAY CHATO Sodium Chloride (Nacl 0.9% 1000 Ml) 1,000 mls @ 75 mls/hr IV DIRECT CHATO Stop: 05/28/19 14:59 Ibuprofen (Motrin) 800 mg PO Q8H CHATO Ondansetron HCl (Zofran) 4 mg IV Q8H PRN PRN Reason: Nausea And Vomiting Sodium Chloride (Sodium Chloride Flush Syringe 10 Ml) 10 ml IV BID CHATO Sodium Chloride (Sodium Chloride Flush Syringe 10 Ml) 10 ml IV PRN PRN PRN Reason: LINE FLUSH Exam - Physical Exam Narrative exam: General Apperance: The patient lying in bed, breathing comfortable HEENT: Normocephalic, atraumatic. Pupils equally round and reactive to light, EOMI, no sclericterus or JVD or thyromegaly or nodule. , no carotid bruit, mucous membranes moist, no exudate or erythema Heart: S1-S2, regular is rhythm Lungs: Clear to auscultation bilaterally, breathing comfortable Abdomen: Positive bowel sounds, soft, nontender, nondistended, no organomegaly Extremities: No edema cyanosis clubbing Skin: no rash, nodule, warm and dry Neuro: cranial nerves 2-12 intact, speech is fluent, motor/sensory intact - Constitutional Vitals: Temp Pulse Resp BP Pulse Ox 97.9 F 87 18 155/101 97 01/14/19 06:40 01/14/19 06:40 01/14/19 06:40 01/14/19 05:24 01/14/19 06:40 Results - Labs CBC & Chem 7: 01/14/19 05:18 01/14/19 05:18 Labs: Abnormal lab results 01/14/19 01/14/19 Range/Units 05:18 05:18 WBC 12.1 H (4.5-11.0) K/mm3 [place] % (Auto) 13.4 H (0.0-7.3) % [place] # 1.6 H (0.0-0.8) K/mm3 Seg Neutrophils # 7.8 H (1.8-7.7) K/mm3 Sodium 135 L (137-145) mmol/L Chloride 95.6 L (98-107) mmol/L BUN 5 L (9-20) mg/dL Creatinine 0.7 L (0.8-1.5) mg/dL Glucose 111 H (75-100) mg/dL Troponin T 0.690 H* (0.00-0.029) ng/mL - Imaging and Cardiology EKG: image reviewed Chest x-ray: image reviewed Assessment and Plan Assessment Acute myocardial pericarditis Stress-induced leukocytosis Substance abuse Plan Admit to medicine Cardiology recommended colchicine, Motrin Follow cardiac enzymes, DVT prophylaxis
[2019-01-14] MEDS ORDERED: NACL 0.9% 1000 ML 1,000 ML IV SCH (07:00)
[2019-01-14] MEDS ORDERED: IBUPROFEN PO SCH (07:00)
--- NOTE | 2019-01-14 07:29 | Cardiac Catherization Report ---
EMERGENT HEART CATHETERIZATION CLINICAL INFORMATION: This is a 33-year-old -[place] gentleman who denies any past medical history, took ecstasy yesterday. He has been having recurrent chest pain. He comes to the Emergency Room because of constant pain by EMS shows acute ST elevations inferiorly with mild depressions in posterior leads. In view of severe chest pain and EKG changes, brought emergently to the Tapper Operator. The patient was done under moderate sedation. Total sedation time was 20 minutes, started at 6 o'clock, finished at 6:20 a.m., 20 minutes of moderate sedation. DESCRIPTION OF PROCEDURE: Procedure was done via the right radial artery, sterile technique, local anesthesia, 6-[place] radial sheath inserted. Left system engaged with a JL3.5 catheter. Left main is large and patent, bifurcates into large LAD, it is wraparound LAD that is patent. Diagonal 1 and diagonal 2 small caliber vessel that is patent. Circumflex and AV groove is a medium caliber vessel that is patent and bifurcates into OM1. OM2 and OM3 are medium caliber vessels that are patent normal. RCA engaged with JR4 is a large dominant with moderate tortuosity proximally and distally. PDA and PLV are medium caliber vessel that is patent. LV gram in ESCALANTE view shows normal LV function, EF 60%, LVEDP of 20 mmHg, LV is 130, aortic is 130/89. No gradient across the aortic valve on pullback. 5-Icelandic catheters were taken over guidewires, 6-Icelandic radial sheath was discontinued. Radial band applied. No hematoma, no bleeding. SUMMARY: Normal coronaries, right dominant system, normal LV function. EKG changes by mild pericarditis as the patient has positive troponin. We will try with anti-inflammatories and colchicine. JOB# [id number] SOFIA/NTS
[2019-01-14] MEDS ORDERED: SODIUM CHLORIDE FLUSH SYRINGE 10 ML IV SCH (10:00)
[2019-01-14] MEDS ORDERED: LOVENOX SUB-Q SCH ×2 (10:00)
[2019-01-14] MEDS ORDERED: COLCHICINE PO SCH (10:00)
--- NOTE | 2019-01-14 11:04 | Progress Note ---
Assessment and Plan Assessment and plan: Acute myocardial pericarditis. Cath negative. F/U labs. ECHO pending Stress-induced leukocytosis. F/U CBC Substance abuse History Interval history: 33-year-old male with no medical EMERGENCY room because he was experiencing chest pain that started last night. Pain was in the left chest which he described as a tightness which was intermittent initially and then became constant, intensity 7/10, no radiation. Pt. admitted to nausea vomiting. Shortness of breath, diaphoresis, palpitation. He stated that he did estacy yesterday. Patient arrived as a code STEMI, he was taken emergently to the laborer rags, his cath was negative. Cardiac catheterization revealed normal coronaries with normal LV function. Cardiology consulted and felt to be julio-pericarditis Hospitalist Physical - Constitutional Vitals: Temp Pulse Resp BP Pulse Ox 97.9 F 79 18 122/73 98 01/14/19 09:19 01/14/19 09:19 01/14/19 09:19 01/14/19 09:19 01/14/19 09:19 General appearance: Present: no acute distress - EENT Eyes: Present: PERRL, EOM intact ENT: hearing intact, clear oral mucosa, dentition normal - Neck Neck: Present: supple, normal ROM - Respiratory Respiratory effort: normal Respiratory: bilateral: CTA - Cardiovascular Rhythm: regular Heart Sounds: Present: S1 & S2. Absent: gallop, rub - Extremities Extremities: no ischemia, No edema, Full ROM - Abdominal General gastrointestinal: soft, non-tender, non-distended, normal bowel sounds - Integumentary Integumentary: Present: clear, warm, dry - Neurologic Neurologic: CNII-XII intact, moves all extremities Results - Labs CBC & Chem 7: 01/14/19 05:18 01/14/19 05:18 Labs: Laboratory Last Values WBC 12.1 K/mm3 (4.5-11.0) H 01/14/19 05:18 RBC 4.92 M/mm3 (3.65-5.03) 01/14/19 05:18 Hgb 13.7 gm/dl (11.8-15.2) 01/14/19 05:18 Hct 41.1 % (35.5-45.6) 01/14/19 05:18 MCV 84 fl (84-94) 01/14/19 05:18 MCH 28 pg (28-32) 01/14/19 05:18 MCHC 33 % (32-34) 01/14/19 05:18 RDW 13.7 % (13.2-15.2) 01/14/19 05:18 Plt Count 299 K/mm3 (140-440) 01/14/19 05:18 Lymph % (Auto) 21.1 % (13.4-35.0) 01/14/19 05:18 Lane % (Auto) 13.4 % (0.0-7.3) H 01/14/19 05:18 Eos % (Auto) 0.7 % (0.0-4.3) 01/14/19 05:18 Baso % (Auto) 0.7 % (0.0-1.8) 01/14/19 05:18 Lymph # 2.6 K/mm3 (1.2-5.4) 01/14/19 05:18 Lane # 1.6 K/mm3 (0.0-0.8) H 01/14/19 05:18 Eos # 0.1 K/mm3 (0.0-0.4) 01/14/19 05:18 Baso # 0.1 K/mm3 (0.0-0.1) 01/14/19 05:18 Seg Neutrophils % 64.1 % (40.0-70.0) 01/14/19 05:18 Seg Neutrophils # 7.8 K/mm3 (1.8-7.7) H 01/14/19 05:18 PT 13.4 Sec. (12.2-14.9) 01/14/19 05:18 INR 0.96 (0.87-1.13) 01/14/19 05:18 APTT 32.1 Sec. (24.2-36.6) 01/14/19 05:18 Sodium 135 mmol/L (137-145) L 01/14/19 05:18 Potassium 3.9 mmol/L (3.6-5.0) 01/14/19 05:18 Chloride 95.6 mmol/L (98-107) L 01/14/19 05:18 Carbon Dioxide 22 mmol/L (22-30) 01/14/19 05:18 21 mmol/L 01/14/19 05:18 BUN 5 mg/dL (9-20) L 01/14/19 05:18 0.7 mg/dL (0.8-1.5) L 01/14/19 05:18 Estimated GFR > 60 ml/min 01/14/19 05:18 7 % 01/14/19 05:18 Glucose 111 mg/dL (75-100) H 01/14/19 05:18 Calcium 9.1 mg/dL (8.4-10.2) 01/14/19 05:18 803 units/L (55-170) H 01/14/19 10:21 CK-MB (CK-2) 58.0 ng/mL (0.0-4.0) H 01/14/19 10:21 CK-MB (CK-2) Rel Index 7.2 (0-4) H 01/14/19 10:21 1.050 ng/mL (0.00-0.029) H* D 01/14/19 10:21 Triglycerides 101 mg/dL (2-149) 01/14/19 05:18 Cholesterol 163 mg/dL (50-199) 01/14/19 05:18 89 mg/dL (50-130) 01/14/19 05:18 59 mg/dL (40-59) 01/14/19 05:18 2.76 % 01/14/19 05:18 Active Medications - Current Medications Current Medications: Generic Name Dose Route Start Last Admin Trade Name Freq PRN Reason Stop Dose Admin Acetaminophen 650 mg 01/14/19 06:39 Tylenol PO Q4H PRN Pain MILD(1-3)/Fever >100.5/BUSH Colchicine 0.6 mg 01/14/19 10:00 01/14/19 10:44 Colchicine PO Not Given DAILY CHATO Enoxaparin Sodium 40 mg 01/14/19 10:00 01/14/19 10:44 Lovenox SUB-Q Not Given QDAY@1000 CHATO Sodium Chloride 1,000 mls @ 75 mls/hr 01/14/19 07:00 Nacl 0.9% 1000 Ml IV 01/14/19 14:59 DIRECT CHATO Ibuprofen 800 mg 01/14/19 07:00 01/14/19 10:42 Motrin PO 800 mg Q8H CHATO Administration Ondansetron HCl 4 mg 01/14/19 06:39 Zofran IV Q8H PRN Nausea And Vomiting Sodium Chloride 10 ml 01/14/19 10:00 01/14/19 10:55 Sodium Chloride Flush Syringe 10 Ml IV 10 ml BID CHATO Administration Sodium Chloride 10 ml 01/14/19 06:39 Sodium Chloride Flush Syringe 10 Ml IV PRN PRN LINE FLUSH
--- NOTE | 2019-01-14 11:06 | Progress Note ---
Assessment and Plan Echo reviewed - mild LVH, EF 50-55%. Cont present cardiac management. Of note, pt admits to taking ecstasy yesterday morning before the onset of his cp. He also smokes tobacco and drinks daily. Cessation of illicit substances, tobacco and ETOH encouraged. The patient has been seen in conjunction with Dr. Gonzalez who agrees with the asse ssment and plan of care. - Patient Problems (1) Pericarditis Current Visit: Yes Status: Acute Qualifiers: Pericarditis type: unspecified type Chronicity: acute Qualified Code(s): I30.9 - Acute pericarditis, unspecified (2) NSTEMI (non-ST elevated myocardial infarction) Current Visit: Yes Status: Acute Plan to address problem: type 2 (3) Nicotine dependence unspecified, with withdrawal Current Visit: No Status: Chronic Qualifiers: Subjective Date of service: 01/14/19 Principal diagnosis: cp Interval history: pt resting in bed, no current cardiac complaints. s/p C this AM. Objective Last Vital Signs Temp 97.9 F 01/14/19 09:19 Pulse 79 01/14/19 09:19 Resp 18 01/14/19 09:19 BP 122/73 01/14/19 09:19 Pulse Ox 98 01/14/19 09:19 - Physical Examination General: No Apparent Distress HEENT: Positive: PERRL, Mucus Membranes Moist Neck: Positive: neck supple, trachea midline Cardiac: Positive: Reg Rate and Rhythm, S1/S2 Lungs: Positive: Decreased Breath Sounds Neuro: Positive: Grossly Intact Abdomen: Positive: Soft, Active Bowel Sounds. Negative: Tender, Distended Skin: Positive: Clear Incision: Cardiac Cath Site Musculoskeletal: No Pain, Normal Range of Motion Extremities: Present: normal. Absent: edema - Labs and Meds Cardiac Enzymes 01/14/19 Range/Units 10:21 CK-MB (CK-2) 58.0 H (0.0-4.0) ng/mL Coagulation 01/14/19 Range/Units 05:18 PT 13.4 (12.2-14.9) Sec. INR 0.96 (0.87-1.13) APTT 32.1 (24.2-36.6) Sec. Lipids 01/14/19 Range/Units 05:18 Triglycerides 101 (2-149) mg/dL Cholesterol 163 (50-199) mg/dL HDL Cholesterol 59 (40-59) mg/dL Cholesterol/HDL Ratio 2.76 % CBC 01/14/19 Range/Units 05:18 WBC 12.1 H (4.5-11.0) K/mm3 RBC 4.92 (3.65-5.03) M/mm3 Hgb 13.7 (11.8-15.2) gm/dl Hct 41.1 (35.5-45.6) % Plt Count 299 (140-440) K/mm3 Lymph # 2.6 (1.2-5.4) K/mm3 [place] # 1.6 H (0.0-0.8) K/mm3 Eos # 0.1 (0.0-0.4) K/mm3 Baso # 0.1 (0.0-0.1) K/mm3 Comprehensive Metabolic Panel 01/14/19 Range/Units 05:18 Sodium 135 L (137-145) mmol/L Potassium 3.9 (3.6-5.0) mmol/L Chloride 95.6 L (98-107) mmol/L Carbon Dioxide 22 (22-30) mmol/L BUN 5 L (9-20) mg/dL Creatinine 0.7 L (0.8-1.5) mg/dL Glucose 111 H (75-100) mg/dL Calcium 9.1 (8.4-10.2) mg/dL - Imaging and Cardiology EKG: image reviewed Cardiac cath: report reviewed (normal coronaries right dominant system normal LV function)
--- NOTE | 2019-01-14 12:54 | Discharge Summary ---
Providers - Providers Date of Admission: 01/14/19 07:39 Date of discharge: 01/14/19 Attending physician: LAUREL MCCOY 01/14/19 06:34 Consult to Cardiac Rehabilitation [CONS] Routine Reason For Exam: Cardiac Rehab Evaluation Primary care physician: NURSE [employer] [employer]ULT Hospitalization Reason for admission: cp Condition: Stable Hospital course: 33-year-old male with no medical EMERGENCY room because he was experiencing chest pain that started the night prior to admission. Pain was in the left chest which he described as a tightness which was intermittent initially and then became constant, intensity 7/10, no radiation. Pt. admitted to nausea vomiting. Shortness of breath, diaphoresis, palpitation. He stated that he did estacy the day prior to admission. 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 Cardiac catheterization revealed normal coronaries with normal LV function. Cardiology consulted and felt to be julio-pericarditis. Echocardiogram revealed mild concentric left ventricular hypertrophy with global left ventricular systolic function normal and EF 50-55%. There was no pericardial effusion. Cardiology felt the patient could be discharged home and recommendations were for no illicit drug use. Dedicated discharge time 32 minutes. Disposition: DC-01 TO HOME OR SELFCARE Time spent for discharge: 32 - Discharge Diagnoses (1) Pericarditis Status: Acute Qualifiers: Pericarditis type: unspecified type Chronicity: acute Qualified Code(s): I30.9 - Acute pericarditis, unspecified (2) Nicotine dependence unspecified, with withdrawal Status: Chronic Qualifiers: Core Measure Documentation - Palliative Care Palliative Care/ Comfort Measures: Not Applicable - Core Measures Any of the following diagnoses?: none Exam - Constitutional Vitals: Temp Pulse Resp BP Pulse Ox 97.9 F 79 18 122/73 98 01/14/19 09:19 01/14/19 09:19 01/14/19 09:19 01/14/19 09:19 01/14/19 09:19 General appearance: Present: no acute distress, well-nourished - EENT Eyes: Present: PERRL ENT: hearing intact, clear oral mucosa - Neck Neck: Present: supple, normal ROM - Respiratory Respiratory effort: normal Respiratory: bilateral: CTA - Cardiovascular Heart Sounds: Present: S1 & S2. Absent: rub, click - Extremities Extremities: pulses symmetrical, No edema Peripheral Pulses: within normal limits - Abdominal General gastrointestinal: Present: soft, non-tender, non-distended, normal bowel sounds Male genitourinary: Present: normal - Integumentary Integumentary: Present: clear, warm, dry - Musculoskeletal Musculoskeletal: gait normal, strength equal bilaterally - Psychiatric Psychiatric: appropriate mood/affect, intact judgment & insight - Neurologic Neurologic: CNII-XII intact, moves all extremities Plan Activity: no restrictions Weight Bearing Status: Full Weight Bearing Diet: regular Follow up with: PRIMARY CAREMD [Primary Care Provider] - 3-5 Days PASHA ROSE MD [Staff Physician] - 7 Days Prescriptions: Colchicine 0.6 mg PO DAILY #30 capsule Ibuprofen [Motrin 800 MG tab] 800 mg PO Q8H #15 tablet
[2019-01-14 13:39] LABS: Creatine Kinase MB 49.8 ng/mL (0.0-4.0)
[2019-01-14 15:00] VITALS: BP 125/68
== END 2019-01-14 14:08 | disposition home or self-care (01) | DRG 281 ==
LOC: SUATTDRO 04:59 → ED 04:59 → 4A 07:39
PROVIDERS: ADMIT Internal Medicine; ATTEND Hospitalist
PROC: 4A023N7 Measurement of Cardiac Sampling and Pressure, Left Heart, Percutaneous Approach (ICD-10-PCS; principal; 2019-01-14)
PROC: B2111ZZ Fluoroscopy of Multiple Coronary Arteries using Low Osmolar Contrast (ICD-10-PCS; 2019-01-14)
PROC: B2151ZZ Fluoroscopy of Left Heart using Low Osmolar Contrast (ICD-10-PCS; 2019-01-14)
DX: I30.9 Acute pericarditis, unspecified (principal); I21.A1 Myocardial infarction type 2; F17.213 Nicotine dependence, cigarettes, with withdrawal; D72.828 Other elevated white blood cell count; F19.10 Other psychoactive substance abuse, uncomplicated; Z72.89 Other problems related to lifestyle; Z82.49 Family history of ischemic heart disease and other diseases of the circulatory system
CPT/HCPCS: 36415; 71045; 80048; 80061; 82550; 82553; 84484; 85025; 85610; 85730; 93005; 93010; 93306; 93458; G0378; C1894; J1644; J1650; J1885; J2250; J2270; J2405; J3010; J7030; Q9967

== ENCOUNTER 2019-01-15 02:24 | Emergency (ER) | payer OTHER ==
[2019-01-15] MEDS ORDERED: MORPHINE IV ONE (02:28)
[2019-01-15] MEDS ORDERED: ZOFRAN IV ONE (02:28)
[2019-01-15] MEDS ORDERED: NACL 0.9% 1000 ML 1,000 ML IV ONE (02:30)
--- NOTE | 2019-01-15 02:30 | Emergency Department Report ---
ED Chest Pain HPI - General Stated Complaint: CP Time Seen by Provider: 01/15/19 02:26 Source: patient, old records reviewed - History of Present Illness Initial Comments: Mr. Saenz is a 33 yo male who presents with severe 7/10 chest pain 50 minutes prior to EMS arrival for left sided chest pain radiating to left arm. Diagnosed with PR. Code STEMI activated prior to arrival. Transmitted EKG revealed inferolateral ST elevation. Upon arrival, he explained that he was evaluated last night with similar symptoms. Had emergent cath which revealed normal coronary arteries. Diagnosis myocarditis. History of tobacco alcohol and ecstasy drug use. MD Complaint: chest pain -: Sudden, minutes(s) (50) Onset: during rest Pain Location: left chest Pain Radiation: LUE Severity: severe Severity scale (0 -10): 7 Quality: sharp Consistency: constant Improves With: nothing Worsens With: nothing Context: recent illness Treatments Prior to Arrival: aspirin - Related Data Previous Rx's Medication Instructions Recorded Last Taken Type Colchicine 0.6 mg PO DAILY #30 capsule 01/14/19 Unknown Rx Ibuprofen [Motrin 800 MG tab] 800 mg PO Q8H #15 tablet 01/14/19 Unknown Rx Oxycodone HCl/Acetaminophen 1 each PO Q6HR PRN #15 tablet 01/15/19 Unknown Rx [Percocet 10/325 mg] Allergies Allergy/AdvReac Type Severity Reaction Status Date / Time No Known Allergies Allergy Unverified 08/07/18 23:45 Heart Score - HEART Score History: Highly suspicious EKG: Significant ST-depression Age: < 45 Risk factors: No known risk factors Troponin: < normal limit HEART Score: 4 ED Review of Systems ROS: Stated complaint: CP Other details as noted in HPI Comment: All other systems reviewed and negative Constitutional: denies: fever, malaise ED Past Medical Hx - Past Medical History Previous Medical History?: Yes Additional medical history: Myocarditis - Surgical History Past Surgical History?: Yes Additional Surgical History: Intestinal obstruction as a child - Family History Family history: no significant - Social History Smoking Status: Current Every Day Smoker Substance Use Type: Alcohol, Other (ecstasy) - Medications Home Medications: Home Medications Medication Instructions Recorded Confirmed Last Taken Type Colchicine 0.6 mg PO DAILY #30 capsule 01/14/19 Unknown Rx Ibuprofen [Motrin 800 MG tab] 800 mg PO Q8H #15 tablet 01/14/19 Unknown Rx Oxycodone HCl/Acetaminophen 1 each PO Q6HR PRN #15 tablet 01/15/19 Unknown Rx [Percocet 10/325 mg] ED Physical Exam - General General appearance: alert, other (appears in severe pain) - Head Head exam: Present: atraumatic, normocephalic - Eye Eye exam: Present: normal appearance - ENT ENT exam: Present: mucous membranes moist - Neck Neck exam: Present: normal inspection, full ROM - Respiratory Respiratory exam: Present: normal lung sounds bilaterally. Absent: respiratory distress, wheezes, rales, rhonchi - Cardiovascular Cardiovascular Exam: Present: regular rate, normal rhythm, normal heart sounds. Absent: systolic murmur, diastolic murmur, rubs, gallop - GI/Abdominal GI/Abdominal exam: Present: soft, normal bowel sounds. Absent: distended, tenderness, guarding, rebound - Rectal Rectal exam: Present: deferred - Extremities Exam Extremities exam: Present: normal inspection - Neurological Exam Neurological exam: Present: alert, oriented X3 - Psychiatric Psychiatric exam: Present: normal mood, anxious, other (in obvious pain) - Skin Skin exam: Present: warm, dry, intact, normal color. Absent: rash ED Course Vital Signs 01/15/19 01/15/19 01/15/19 02:24 02:30 02:45 Pulse Rate 73 77 74 Respiratory 31 H 22 10 L Rate Blood Pressure 137/97 140/101 O2 Sat by Pulse 100 Oximetry 01/15/19 01/15/19 01/15/19 03:00 03:15 03:30 Pulse Rate 62 73 69 Respiratory 15 20 20 Rate Blood Pressure 140/101 141/101 141/101 O2 Sat by Pulse 100 100 100 Oximetry 01/15/19 01/15/19 01/15/19 03:51 04:00 04:15 Pulse Rate 88 91 H 87 Respiratory 13 21 17 Rate Blood Pressure 136/96 133/109 127/80 O2 Sat by Pulse 100 97 98 Oximetry ED Medical Decision Making - Lab Data Result diagrams: 01/15/19 02:38 01/15/19 02:38 Laboratory Results - last 24 hr 01/15/19 01/15/19 01/15/19 02:38 02:38 02:38 WBC 12.2 H RBC 4.62 Hgb 13.0 Hct 39.0 MCV 84 MCH 28 MCHC 33 RDW 13.8 Plt Count 287 Lymph % (Auto) 27.4 Cole % (Auto) 14.6 H Eos % (Auto) 0.6 Baso % (Auto) 0.6 Lymph # 3.3 Cole # 1.8 H Eos # 0.1 Baso # 0.1 Seg Neutrophils % 56.8 Seg Neutrophils # 6.9 D-Dimer 328.99 H Sodium 135 L Potassium 3.9 Chloride 99.3 Carbon Dioxide 21 L Anion Gap 19 BUN 10 Creatinine 0.7 L Estimated GFR > 60 BUN/Creatinine Ratio 14 Glucose 125 H Calcium 8.9 Total Bilirubin 0.20 AST 57 H ALT 28 Alkaline Phosphatase 96 Troponin T 1.000 H* Total Protein 7.4 Albumin 3.2 L Albumin/Globulin Ratio 0.8 Urine Color Urine Turbidity Urine pH Ur Specific [place] Urine Protein Urine Glucose (UA) Urine Ketones Urine Blood Urine Nitrite Urine Bilirubin Urine Urobilinogen Ur Leukocyte Esterase Urine WBC (Auto) Urine RBC (Auto) Urine Mucus Urine Opiates Screen Urine Methadone Screen Ur Barbiturates Screen Ur Phencyclidine Scrn Ur Amphetamines Screen U Benzodiazepines Scrn Urine Cocaine Screen U Marijuana (THC) Screen Drugs of Abuse Note 01/15/19 01/15/19 01/15/19 03:34 03:34 04:43 WBC RBC Hgb Hct MCV MCH MCHC RDW Plt Count Lymph % (Auto) Cole % (Auto) Eos % (Auto) Baso % (Auto) Lymph # Cole # Eos # Baso # Seg Neutrophils % Seg Neutrophils # D-Dimer Sodium Potassium Chloride Carbon Dioxide Anion Gap BUN Creatinine Estimated GFR BUN/Creatinine Ratio Glucose Calcium Total Bilirubin AST ALT Alkaline Phosphatase Troponin T 1.490 H* D Total Protein Albumin Albumin/Globulin Ratio Urine Color Straw Urine Turbidity Clear Urine pH 7.0 Ur Specific [place] 1.009 Urine Protein <15 mg/dl Urine Glucose (UA) Neg Urine Ketones Tr Urine Blood Mod Urine Nitrite Neg Urine Bilirubin Neg Urine Urobilinogen < 2.0 Ur Leukocyte Esterase Neg Urine WBC (Auto) 1.0 Urine RBC (Auto) 12.0 Urine Mucus Few Urine Opiates Screen Presumptive negative Urine Methadone Screen Presumptive negative Ur Barbiturates Screen Presumptive negative Ur Phencyclidine Scrn Presumptive negative Ur Amphetamines Screen Presumptive negative U Benzodiazepines Scrn Presumptive negative Urine Cocaine Screen Presumptive negative U Marijuana (THC) Screen Presumptive negative Drugs of Abuse Note Disclamer - EKG Data 01/15/19 02:38 EKG obtained 225 Normal sinus rhythm rate 70 beats a minute abnormal axis ST elevation in the inferior and lateral leads with ST depressions V1 and V2 - Medical Decision Making Mr. Saenz returns to ED after recent discharge with severe chest pain. ST elevations seen in inferior and lateral leads on multiple EKGs Dx: myocarditis considering normal coronary arteries on recent left heart catheterization upon my review of cardiology consultation. Considering severe pain, CT angio chest ordered which was normal. I reviewed EMR. Normal echocardiogram without effusion. Two sets of troponin assays comparable two recent labs. I did notice a small delta from 1.00 to 1.49 troponin. I spoke with inspector chief Dr. Benitez who did not feel that this occurrence is significant. Strongly encouraged patient to fill prescriptions of colchicine and ibuprofen provided to him on yesterday's discharge I provided addition prescription Percocet Critical Care Time: Yes Critical care time in (mins) excluding proc time.: 40 Critical care attestation.: If time is entered above; I have spent that time in minutes in the direct care of this critically ill patient, excluding procedure time. 40 minutes of critical care time excluding procedures were used in the care of the patient. Prior to arrival I reviewed ST elevation in the inferolateral leads on transmitted EKGs 2. I obtained report from EMS prior to arrival. I immediately spoke with sql developer dba Dr. Nuñez who recommended code STEMI activation. Upon arrival confirmed that patient did indeed have recent cardiac catheterizationon yesterday morning. I spoke with Dr. Nuñez again. He agreed with canceling code STEMI. Patient required multiple assessments and interventions. I reviewed the electronic medical record. I spoke with consultants involved in the care of the patient. ED Disposition Clinical Impression: Acute myopericarditis, ST elevation Disposition: DC-01 TO HOME OR SELFCARE Is pt being admited?: No Does the pt Need Aspirin: No Condition: Stable Instructions: Acute Pericarditis (ED) Additional Instructions: You must take Ibuprofen and colchicine to treat the inflammation around your heart. Use Percocet for pain relief. Prescriptions: Oxycodone HCl/Acetaminophen [Percocet 10/325 mg] 1 each PO Q6HR PRN #15 tablet PRN Reason: Pain Referrals: PASHA ROSE MD [Staff Physician] - 3-5 Days [facility] [Outside] - 3-5 Days
[2019-01-15 02:45] LABS: Basophils # (Auto) 0.1 K/mm3 (0.0-0.1); Basophils % (Auto) 0.6 % (0.0-1.8); Eosinophils # (Auto) 0.1 K/mm3 (0.0-0.4); Eosinophils % (Auto) 0.6 % (0.0-4.3); Lymphocytes # (Auto) 3.3 K/mm3 (1.2-5.4); Lymphocytes % (Auto) 27.4 % (13.4-35.0); Mean Corpuscular HGB Conc 33 % (32-34); Mean Corpuscular Volume 84 fl (84-94); Monocytes # (Auto) 1.8 K/mm3 (0.0-0.8); Monocytes % (Auto) 14.6 % (0.0-7.3); Platelet Count 287 K/mm3 (140-440); Red Blood Count 4.62 M/mm3 (3.65-5.03); Red Cell Distribution Width 13.8 % (13.2-15.2)
[2019-01-15 03:10] LABS: Alanine Aminotransferase 28 units/L (7-56); Albumin 3.2 g/dL (3.9-5); BUN/Creatinine Ratio 14; Blood Urea Nitrogen 10 mg/dL (9-20); Calcium 8.9 mg/dL (8.4-10.2); Hemolysis Index 66
[2019-01-15 03:49] LABS: Bilirubin,Urine NEG (Negative); Blood,Urine MOD (Negative); Color,Urine Straw (Yellow); Mucus,Urine FEW /HPF; Protein,Urine <15 mg/dL mg/dL (Negative); Urobilinogen,Urine < 2.0 mg/dL (<2.0)
[2019-01-15 03:56] LABS: Amphetamine Screen,Urine PRESUMPTIVE NEGATIVE; Benzodiazepines Screen,Urine PRESUMPTIVE NEGATIVE; Cannabinoid Screen,Urine PRESUMPTIVE NEGATIVE; Cocaine Screen,Urine PRESUMPTIVE NEGATIVE; Methadone Screen,Urine PRESUMPTIVE NEGATIVE; Opiate Screen,Urine PRESUMPTIVE NEGATIVE
--- NOTE | 2019-01-15 04:15 | Cat Scan Report ---
PROCEDURE: CT ANGIO CHEST TECHNIQUE: Computerized tomographic angiography of the chest was performed after the IV injection of iodinated nonionic contrast including image processing. The image data was postprocessed using 2-di mensional multiplanar reformatted (MPR) and 3-dimensional (MIP and/or volume rendered) techniques. Au tomated exposure control, adjustment of mA and/or kV according to patient size, or iterative reconstr uction dose optimization techniques were utilized. CT DOSE LENGTH PRODUCT: mGycm HISTORY: chest pain COMPARISONS: None . FINDINGS: Heart and pericardium: Normal. Thoracic aorta: Normal. Pulmonary vasculature: Normal. Lymph nodes: No enlarged thoracic lymph nodes. Lungs: Normal. Pleural space: No effusion, thickening, or pneumothorax. Musculoskeletal structures: No significant abnormality. Upper abdominal structures: No significant abnormality. IMPRESSION: There is no pulmonary embolism. . This document is electronically signed by Saad Sullivan MD., Jan 15 2019 04:14:17 AM ET
[2019-01-15] MEDS ORDERED: PERCOCET 5/325 PO ONE (04:43)
[2019-01-15] MEDS ORDERED: COLCHICINE PO ONE (04:43)
[2019-01-15] MEDS ORDERED: IBUPROFEN PO ONE (04:43)
[2019-01-15 05:56] VITALS: BP 117/76
== END 2019-01-15 06:15 | disposition home or self-care (01) ==
LOC: ED 02:24
DX: I31.9 Disease of pericardium, unspecified (principal); I21.3 ST elevation (STEMI) myocardial infarction of unspecified site; F17.200 Nicotine dependence, unspecified, uncomplicated
CPT/HCPCS: 36415; 71275; 80053; 80307; 81001; 84484; 85025; 85379; 93005; 93010; 96374; 96375; 99291; J2270; J2405; J7030; Q9967